=== PATIENT | male | born 1985 | race Caucasian/White ===

== ENCOUNTER 2021-09-04 21:15 | Emergency (ER) | payer SELFPAY | END 2021-09-04 22:50 | disposition home or self-care (01) | LOC: ER1 21:15 | DX: S81.811A Laceration without foreign body, right lower leg, initial encounter (principal); F17.200 Nicotine dependence, unspecified, uncomplicated; Z23 Encounter for immunization; I10 Essential (primary) hypertension; W26.8XXA Contact with other sharp object(s), not elsewhere classified, initial encounter; Y92.89 Other specified places as the place of occurrence of the external cause; Y99.0 Civilian activity done for income or pay | CPT/HCPCS: 12001; 90471; 90715; 99283 ==

== ENCOUNTER 2021-09-29 18:12 | Emergency (ER) | payer BC | END 2021-09-29 20:34 | disposition home or self-care (01) | LOC: ER1 18:12 | DX: U07.1 COVID-19 (principal); I10 Essential (primary) hypertension; J45.909 Unspecified asthma, uncomplicated | CPT/HCPCS: 0240U; 71045; 99284 ==